=== PATIENT | male | born 1955 | race Caucasian/White ===

== ENCOUNTER 2016-08-27 09:44 | Emergency (ER) | payer SELFPAY ==
[~2016-08-27] VITALS: Ht 180.3 cm; Wt 125.0 kg
[~2016-08-27 09:44] MED LIST: LACT PO; LISI-360 PO; LORTA5 PO; MEDR4PAK3 PO; PROT40TA PO
[2016-08-27 09:47] VITALS: BP 195/123; PULSE 90; RESP 24; TEMP 98; O2SAT 98
[2016-08-27] MEDS ORDERED: SODIUM CHLOR 0.9% 1000 ML INJ 1,000 ML IV SCH (11:30)
[2016-08-27] MEDS ORDERED: SODIUM CHLORIDE 0.9% FLUSH 10 ML FLUSH IV FLUSH PRN (11:30)
--- NOTE | 2016-08-27 11:32 | PD ---
HPI Chief Complaint: Edema Time Seen by Provider: 11:32 Travel History International Travel<30 days: No Contact w/Intl Traveler<30days: No Traveled to known affect area: No History of Present Illness HPI 60-year-old male with a history of alcohol abuse, cirrhosis, hypertension presents to the emergency department for evaluation of left-sided neck mass. The patient states he's had left sided neck mass that has been present and growing for the last 2-1/2 years. States that when he was here in the hospital 2 years ago they did a biopsy and he was told that it was noncancerous. States that he was told he would need to have it removed as an outpatient but he does not have any insurance and therefore has never had it removed. He states that he was told that if it ever caused him difficulty swallowing that he should come back to the hospital. Patient states that for the last month he's had more difficulty with swallowing secondary to the mass. States that he is able to keep down food and fluids, states he has to take small bites of food at a time. He denies any difficulty breathing, shortness of breath, chest pain, nausea, vomiting, diarrhea, abdominal pain, fever, chills, cough or cold symptoms. No other complaints. PFSH Past Medical History Autoimmune Disease: No Blood Disorders: No Anxiety: Yes Depression: Yes Heart Rhythm Problems: No Cancer: No Cardiac Catheterization: No Cardiovascular Problems: Yes High Cholesterol: No Congestive Heart Failure: No Diabetes: No Diminished Hearing: No Gastrointestinal Disorders: Yes (PT STATES, "HAD A HOLE IN MY ESOPHAGUS AND MY LIVER SHUT DOWN.") Hypertension: Yes Psychiatric: No Reproductive: No Myocardial Infarction: No Ulcer: Yes Tetanus Vaccination: Unknown ?: Not Past Surgical History Coronary Artery Bypass Graft: No Pacemaker: No Other Surgery: Yes (ENDOSCOPY FOR "HOLE IN MY ESOPHOGUS". (VARICES?)) Family History Family Myocardial Infarction: Yes Social History Alcohol Use: Yes (occ) Tobacco Use: Yes (1/2 PPD) Substance Use: No Allergies-Medications (Allergen,Severity, Reaction): Coded Allergies: No Known Allergies (Verified , 08/27/16) Reported Meds & Prescriptions Reported Meds & Active Scripts Active No Active Prescriptions or Reported Medications Review of Systems Except as stated in HPI: all other systems reviewed are Neg Physical Exam Narrative GENERAL: Well-nourished and well-developed pleasant male patient in no acute distress who is nontoxic appearing. SKIN: Warm and dry. HEAD: Normocephalic and atraumatic. EYES: No injection, drainage, or hyphema noted. PERRLA. EOMI. ENT: No nasal drainage noted. Oropharynx is clear and the TMs are normal with good landmarks. NECK: Supple and the trachea is midline. Large soft mass to left side of neck that extends from the anterior to the posterior aspect on the left side. CARDIOVASCULAR: Regular rate and rhythm. RESPIRATORY: Breath sounds are equal bilaterally with no accessory muscle use, wheezing, rhonchi, or crackles. GASTROINTESTINAL: Abdomen is soft, non-tender, and nondistended. MUSCULOSKELETAL: No obvious deformities, swelling, cyanosis, or ecchymosis is present throughout the upper and lower extremities. Patient has full range of motion without any signs of neurovascular compromise. NEUROLOGICAL: Awake, alert, and oriented. Normal speech and gait. Cranial nerves are grossly intact. Data Data Last Documented VS Vital Signs Date Time Temp Pulse Resp B/P Pulse Ox O2 Delivery O2 Flow Rate FiO2 08/27/16 13:54 80 18 180/91 97 Room Air 08/27/16 09:47 98.0 Orders Complete Blood Count With Diff (08/27/16 11:30) Comprehensive Metabolic Panel (08/27/16 11:30) Prothrombin Time / Inr (Pt) (08/27/16 11:30) Act Partial Throm Time (Ptt) (08/27/16 11:30) Iv Access Insert/Monitor (08/27/16 11:30) Ecg Monitoring (08/27/16 11:30) Oximetry (08/27/16 11:30) Sodium Chlor 0.9% 1000 Ml Inj (Ns 1000 M (08/27/16 11:30) Sodium Chloride 0.9% Flush (Ns Flush) (08/27/16 11:30) Ct Soft Tiss Neck W Iv Cont (08/27/16 11:30) Potassium Chloride Eff (K-Lyte Cl Eff) (08/27/16 12:45) Iohexol 350 Inj (Omnipaque 350 Inj) (08/27/16 14:18) Mandatory Outpatient Referral (08/27/16 15:01) Labs Laboratory Tests Test 08/27/16 11:40 White Blood Count 6.3 TH/MM3 Red Blood Count 5.07 MIL/MM3 Hemoglobin 16.4 GM/DL Hematocrit 47.2 % Mean Corpuscular Volume 93.1 FL Mean Corpuscular Hemoglobin 32.3 PG Mean Corpuscular Hemoglobin 34.7 % Concent Red Cell Distribution Width 15.6 % Platelet Count 150 TH/MM3 Mean Platelet Volume 8.2 FL Neutrophils (%) (Auto) 59.0 % Lymphocytes (%) (Auto) 31.3 % Monocytes (%) (Auto) 7.3 % Eosinophils (%) (Auto) 1.5 % Basophils (%) (Auto) 0.9 % Neutrophils # (Auto) 3.7 TH/MM3 Lymphocytes # (Auto) 2.0 TH/MM3 Monocytes # (Auto) 0.5 TH/MM3 Eosinophils # (Auto) 0.1 TH/MM3 Basophils # (Auto) 0.1 TH/MM3 CBC Comment DIFF FINAL Differential Comment Prothrombin Time 10.7 SEC Prothromb Time International 1.0 RATIO Ratio Activated Partial 25.7 SEC Thromboplast Time Sodium Level 136 MEQ/L Potassium Level 3.3 MEQ/L Chloride Level 94 MEQ/L Carbon Dioxide Level 35.4 MEQ/L Anion Gap 7 MEQ/L Blood Urea Nitrogen 9 MG/DL Creatinine 0.94 MG/DL Estimat Glomerular Filtration 81 ML/MIN Rate Random Glucose 108 MG/DL Calcium Level 9.1 MG/DL Total Bilirubin 0.9 MG/DL Aspartate Amino Transf 33 U/L (AST/SGOT) Alanine Aminotransferase 22 U/L (ALT/SGPT) Alkaline Phosphatase 112 U/L Total Protein 7.6 GM/DL Albumin 4.0 GM/DL [facility] Medical Decision Making Medical Screen Exam Complete: Yes Emergency Medical Condition: Yes Differential Diagnosis Mass versus lipoma versus airway impingement versus esophageal instruction Narrative Course 60-year-old male presents to the emergency department for evaluation of difficulty swallowing secondary to neck mass. Patient is afebrile. He is hypertensive with a blood pressure 137/87, he does not take anything for his hypertension. He does not have a doctor. IV access is obtained, labs were drawn and sent. Patient is placed on telemetry and pulse oximetry monitoring. CT soft tissue of the neck has been ordered and is pending. CBC is unremarkable. CMP shows hypokalemia with potassium of 3.3. Patient's potassium is repleted orally here in the ED. Coags are unremarkable. CT soft tissue of the neck with IV contrast shows large soft tissue mass in the left neck measuring 13 cm. Smaller mas is seen in the right neck infiltrating around the sternocleidomastoid and jugular vein. CT findings do not suggest any esophageal or airway obstruction. Discussed findings with the patient. Will place a mandatory outpatient referral to ENT for the patient to have this surgically removed. Discussed signs and symptoms of when to return to the emergency department. Patient verbalizes understanding and agreement with treatment plan. I discussed the case with my attending physician Dr. Velásquez who is aware of the patients history, physical examination findings, and treatment plan. Diagnosis Primary Impression: Mass of left side of neck Referrals: [facility] Patient Instructions: General Instructions, Soft Tissue Mass (ED) Additional Instructions: Take medications as prescribed with food and a full glass of water. Follow-up with ENT and a PCP. Return to the ED for any acute worsening of symptoms. Med/Other Pt SpecificInfo: Prescription(s) given Scripts Naproxen 500 Mg Msi162 Mg PO BID 14 Days Ref 0 Prov:Minoo Velásquez DO 08/27/16 Disposition: 01 DISCHARGE HOME Condition: Stable Arleth Brennan Aug 27, 2016 11:32
[2016-08-27 11:47] VITALS: O2SAT 98
[2016-08-27 11:50] LABS: AUTOMATED NEUTROPHIL # 3.7 TH/MM3 (1.8-7.7); BASOPHIL # 0.1 TH/MM3 (0-0.2); BASOPHIL % 0.9 % (0.0-2.0); EOSINOPHIL # 0.1 TH/MM3 (0-0.4); EOSINOPHIL % 1.5 % (0.0-4.0); HEMATOCRIT 47.2 % (39.0-51.0); HEMO FLAGS DIFF FINAL; LYMPH % 31.3 % (9.0-44.0); MEAN CELL VOLUME 93.1 FL (80.0-100.0); MEAN CORPUSCULAR HEMOGLOBIN 32.3 PG (27.0-34.0); MEAN CORPUSCULAR HGB CONC 34.7 % (32.0-36.0); MONO % 7.3 % (0.0-8.0); PLATELET COUNT 150 TH/MM3 (150-450); RED BLOOD COUNT 5.07 MIL/MM3 (4.50-5.90); RED CELL DISTRIBUTION WIDTH 15.6 % (11.6-17.2); WHITE BLOOD COUNT 6.3 TH/MM3 (4.0-11.0)
[2016-08-27 11:52] VITALS: BP 177/87; PULSE 79; RESP 17; O2SAT 95
[2016-08-27 12:04] LABS: APTT (PATIENT) 25.7 SEC (24.3-30.1); PROTHROMBIN TIME - PATIENT 10.7 SEC (9.8-11.6)
[2016-08-27 12:22] LABS: ALT (GPT) 22 U/L (12-78)
[2016-08-27 12:24] LABS: ALKALINE PHOSPHATASE 112 U/L (45-117); TOTAL BILIRUBIN ADULT 0.9 MG/DL (0.2-1.0)
[2016-08-27 12:26] LABS: ANION GAP 7 MEQ/L (5-15); AST (GOT) 33 U/L (15-37); BICARBONATE 35.4 MEQ/L (21.0-32.0); BLOOD UREA NITROGEN 9 MG/DL (7-18); CHLORIDE 94 MEQ/L (98-107); GLOMERULAR FILTRATION RATE 81 ML/MIN (>89); SODIUM (NA) 136 MEQ/L (136-145)
[2016-08-27 12:29] LABS: POTASSIUM 3.3 MEQ/L (3.5-5.1)
[2016-08-27] MEDS ORDERED: POTASSIUM CHLORIDE 25 MEQ EFFERVESCENT TAB PO ONE (12:45)
[2016-08-27 13:54] VITALS: BP 180/91; PULSE 80; RESP 18; O2SAT 97
[2016-08-27] MEDS ORDERED: IOHEXOL 350 MG/ML 10 ML VIAL (for RAD DIAG) IV ONE (14:18)
--- NOTE | 2016-08-27 14:43 | RADRPT ---
EXAM DATE/TIME: 08/27/2016 14:01 [facility] COMPARISON: CT SOFT TISSUE NECK W/O CONTRAST, March 21, 2014, 10:16. INDICATIONS : Left neck mass. IV CONTRAST: 100 cc Omnipaque 350 (iohexol) IV RADIATION DOSE: 29.02 CTDIvol (mGy) MEDICAL HISTORY : Hypertension. SURGICAL HISTORY : None. ENCOUNTER: Initial ACUITY: >1 yr PAIN SCALE: 4/10 LOCATION: Left neck TECHNIQUE: Volumetric scanning of the neck was performed. Using automated exposure control and adjustment of th e mA and/or kV according to patient size, radiation dose was kept as low as reasonably achievable to obtain optimal diagnostic quality images. DICOM format image data is available electronically for r eview and comparison. FINDINGS: There is a large soft tissue mass in the left neck measuring 13 cm. Smaller mass is seen in the righ t neck infiltrating around the sternocleidomastoid and jugular vein. These have tissue characteristi cs by CT scan of a large lipoma. There is very little internal structure to suggest sarcomatous dege neration. This mass extends on the left diagonal to the mandible then along the carotid artery space to the griselda rnoclavicular junction. Mass does infiltrate itself along the brachial plexus. Similar process is present on the right although not as well defined. CONCLUSION: Soft tissue mass in the left neck scanned first in 2014 thought to be either lipoma or atypical lipom a. This has increased slightly in size. Fatty infiltration on the right has increased slightly in s ize as well. Sanjeev Archuleta MD FACR on August 27, 2016 at 14:32 Board Certified Radiologist. This report was verified electronically.
[2016-08-27] MEDS ORDERED: NAPR500T PO (15:10)
== END 2016-08-27 15:25 | disposition home or self-care (01) ==
LOC: NEPE 09:44
DX: R22.1 Localized swelling, mass and lump, neck (principal); E87.6 Hypokalemia; I10 Essential (primary) hypertension; F41.9 Anxiety disorder, unspecified; F32.9 Major depressive disorder, single episode, unspecified; F17.200 Nicotine dependence, unspecified, uncomplicated
CPT/HCPCS: 70491; 80053; 85025; 85610; 85730; 96360; 99285; J7030; Q9967

== ENCOUNTER 2016-12-06 08:33 | Emergency (ER) | payer SELFPAY ==
[~2016-12-06] VITALS: Ht 182.9 cm; Wt 115.0 kg
[~2016-12-06 08:33] MED LIST changes: -LACT PO; -LISI-360 PO; -LORTA5 PO; -MEDR4PAK3 PO; +NAPR500T PO; -PROT40TA PO
[2016-12-06] MEDS ORDERED: GADODIAMIDE PF 287 MG/ML 5 ML VIAL (for RAD MRI) IVCONTRAST ONE (08:34)
[2016-12-06 08:37] VITALS: BP 191/101; PULSE 87; RESP 17; TEMP 98.4; O2SAT 97
[2016-12-06] MEDS ORDERED: SULFAMETHOXAZOLE-TRIMETHOPRIM DS 800-160 MG TAB PO ONE (10:15)
--- NOTE | 2016-12-06 10:17 | PD ---
HPI Chief Complaint: Skin Problem Time Seen by Provider: 09:42 Travel History International Travel<30 days: No Contact w/Intl Traveler<30days: No Traveled to known affect area: No History of Present Illness HPI 61-year-old male came to the emergency room with history of large neck mass that has been there for 3 years. Patient says it's progressively increasing in size. Patient was seen 2 years ago in this hospital when a CAT scan was done. Currently he gets some problems swallowing solids of but liquid some is swallowed easily. The patient is a smoker and no weight loss in the past few days. Patient was hypertensive in triage. [facility] Past Medical History Narrative Medical List of his past medical, surgical, social and family history is reviewed from the nursing note. Autoimmune Disease: No Blood Disorders: No Anxiety: Yes Depression: Yes Heart Rhythm Problems: No Cancer: No Cardiac Catheterization: No Cardiovascular Problems: Yes High Cholesterol: No Congestive Heart Failure: No Diabetes: No Diminished Hearing: No Gastrointestinal Disorders: Yes (PT STATES, "HAD A HOLE IN MY ESOPHAGUS AND MY LIVER SHUT DOWN.") Hypertension: Yes Psychiatric: No Reproductive: No Myocardial Infarction: No Ulcer: Yes Influenza Vaccination: No Past Surgical History Coronary Artery Bypass Graft: No Pacemaker: No Other Surgery: Yes (ENDOSCOPY FOR "HOLE IN MY ESOPHOGUS". (VARICES?)) Family History Family Myocardial Infarction: Yes Social History Alcohol Use: Yes (OCCASIONALLY) Tobacco Use: Yes (1 PPD) Substance Use: No Allergies-Medications (Allergen,Severity, Reaction): Coded Allergies: No Known Allergies (Verified , 08/27/16) Comments List of his allergies reviewed from the nursing note. Reported Meds & Prescriptions Reported Meds & Active Scripts Active Amlodipine (Amlodipine Besylate) 5 Mg Tab 5 Mg PO DAILY Bacitracin Topical 500 Unit/Gm Oint 1 Applic TOPICAL BID Bactrim DS (Sulfamethoxazole-Trimethoprim) 800-160 Mg Tab 1 Tab PO BID Naproxen 500 Mg Tab 500 Mg PO BID 14 Days Narrative Medication List of his home medication reviewed from the nursing note. Review of Systems Except as stated in HPI: all other systems reviewed are Neg Physical Exam Narrative GENERAL: Awake, alert, obese, no obvious distress SKIN: Focused skin assessment warm/dry. Right forearm 2 lesions on the ulnar aspect. The larger one is 5 cm x 3 cm, crusty, some serous sanguinous discharge , erythematous base, the smaller one is 2 x 2 centimeter which has a scab in the center and some erythema surrounding. No discharge, nontender HEAD: Atraumatic. Normocephalic. EYES: Pupils equal and round. No scleral icterus. No injection or drainage. ENT: No nasal bleeding or discharge. Mucous membranes pink and moist. NECK: Trachea midline. No JVD. 20 x 20 cm soft neck mass extending from the mid cervical area anteriorly to the posterior and inferior auricular area superiorly and to the base of the neck laterally and posteriorly. It soft in consistency. No erythema of the overlying skin. The mass is nonpulsatile with no thrill. It is nontender and mobile. CARDIOVASCULAR: Regular rate and rhythm. No murmur appreciated. RESPIRATORY: No accessory muscle use. Clear to auscultation. Breath sounds equal bilaterally. No stridor GASTROINTESTINAL: Abdomen soft, non-tender, nondistended. Hepatic and splenic margins not palpable. MUSCULOSKELETAL: No obvious deformities. No clubbing. No cyanosis. No edema. NEUROLOGICAL: Awake and alert. No obvious cranial nerve deficits. Motor grossly within normal limits. Normal speech. PSYCHIATRIC: Appropriate mood and affect; insight and judgment normal. Data Data Last Documented VS Vital Signs Date Time Temp Pulse Resp B/P (MAP) Pulse Ox O2 Delivery O2 Flow Rate FiO2 12/06/16 14:00 75 20 174/88 (116) 96 12/06/16 08:37 98.4 Orders Orders Basic Metabolic Panel (Bmp) (12/06/16 10:01) Complete Blood Count With Diff (12/06/16 10:01) Wound Culture And Gram Stain (12/06/16 10:01) Sulfamet-Trimeth Ds 800-160 Mg (Bactrim (12/06/16 10:15) Mri Soft Tissue Neck W&W/O Con (12/06/16 ) Gadodiamide Pf Inj (Omniscan Pf Inj) (12/06/16 08:34) Mandatory Outpatient Referral (12/06/16 12:47) Labs Laboratory Tests Test 12/06/16 10:12 White Blood Count 7.0 TH/MM3 Red Blood Count 4.94 MIL/MM3 Hemoglobin 16.0 GM/DL Hematocrit 46.7 % Mean Corpuscular Volume 94.7 FL Mean Corpuscular Hemoglobin 32.5 PG Mean Corpuscular Hemoglobin Concent 34.3 % Red Cell Distribution Width 14.7 % Platelet Count 204 TH/MM3 Mean Platelet Volume 8.1 FL Neutrophils (%) (Auto) 66.3 % Lymphocytes (%) (Auto) 23.0 % Monocytes (%) (Auto) 8.6 % Eosinophils (%) (Auto) 1.5 % Basophils (%) (Auto) 0.6 % Neutrophils # (Auto) 4.6 TH/MM3 Lymphocytes # (Auto) 1.6 TH/MM3 Monocytes # (Auto) 0.6 TH/MM3 Eosinophils # (Auto) 0.1 TH/MM3 Basophils # (Auto) 0.0 TH/MM3 CBC Comment DIFF FINAL Differential Comment Blood Urea Nitrogen 6 MG/DL Creatinine 0.78 MG/DL Random Glucose 107 MG/DL Calcium Level 8.8 MG/DL Sodium Level 139 MEQ/L Potassium Level 3.9 MEQ/L Chloride Level 102 MEQ/L Carbon Dioxide Level 32.3 MEQ/L Anion Gap 5 MEQ/L Estimat Glomerular Filtration Rate 101 ML/MIN MDM Medical Decision Making Medical Screen Exam Complete: Yes Emergency Medical Condition: Yes Medical Record Reviewed: Yes Differential Diagnosis Lipoma, adenocarcinoma Narrative Course 1:04 PM blood test results of back and within normal limit. The MRI report just came back which shows a large lipoma. Patient was given by mouth Bactrim and a wound culture from the skin lesions are pending. Patient will be discharged home on Bactrim. Ordered a mandatory outpatient consult with ENT Dr. Phillips who is on-call for us today. I explained all this to the patient. Procedures EKG Prior to Arrival: No Diagnosis Primary Impression: Lipoma of neck Additional Impressions: Impetigo Hypertension Qualified Codes: I10 - Essential (primary) hypertension Referrals: Alejandro Phillips MD 1 week Additional Instructions: Please return to the ER if the condition worsens or any other new concerns. Follow-up with the ENT surgeon who is name and number been given to you. Take the antibiotic as per the prescription direction. Apply the ointment as per the direction. Med/Other Pt SpecificInfo: Prescription(s) given Scripts Amlodipine (Amlodipine) 5 Mg Tab 5 MG PO DAILY for Blood Pressure Management, #30 TAB 0 Refills Prov: Montserrat Garcia MD 12/06/16 Bacitracin Topical (Bacitracin Topical) 500 Unit/Gm Oint 1 APPLIC TOPICAL BID for Infection, #30 GM 0 Refills Prov: Montserrat Garcia MD 12/06/16 Sulfamethoxazole-Trimethoprim (Bactrim DS) 800-160 Mg Tab 1 TAB PO BID for Infection, #20 TAB 0 Refills Prov: Montserrat Garcia MD 12/06/16 Disposition: 01 DISCHARGE HOME Condition: Stable Montserrat Garcia MD Dec 06, 2016 10:17
[2016-12-06 10:46] LABS: AUTOMATED NEUTROPHIL # 4.6 TH/MM3 (1.8-7.7); BASOPHIL % 0.6 % (0.0-2.0); EOSINOPHIL # 0.1 TH/MM3 (0-0.4); EOSINOPHIL % 1.5 % (0.0-4.0); HEMATOCRIT 46.7 % (39.0-51.0); HEMO FLAGS DIFF FINAL; LYMPHOCYTE # 1.6 TH/MM3 (1.0-4.8); MEAN CELL VOLUME 94.7 FL (80.0-100.0); MEAN CORPUSCULAR HEMOGLOBIN 32.5 PG (27.0-34.0); MEAN CORPUSCULAR HGB CONC 34.3 % (32.0-36.0); MONO % 8.6 % (0.0-8.0); NEUT % 66.3 % (16.0-70.0); PLATELET COUNT 204 TH/MM3 (150-450); RED BLOOD COUNT 4.94 MIL/MM3 (4.50-5.90); RED CELL DISTRIBUTION WIDTH 14.7 % (11.6-17.2)
[2016-12-06 10:57] LABS: BICARBONATE 32.3 MEQ/L (21.0-32.0); POTASSIUM 3.9 MEQ/L (3.5-5.1)
--- NOTE | 2016-12-06 12:37 | RADRPT ---
EXAM DATE/TIME: 12/06/2016 11:38 [facility] COMPARISON: CT SOFT TISSUE NECK W/O CONTRAST, March 21, 2014, 10:16. CT SOFT TISSUE NECK W CONTRAST, August 27, 2016, 14:01. INDICATIONS : Mass on left side of neck. CONTRAST: 23 cc Omniscan (gadodiamide) IV MEDICAL HISTORY : Hypertension. SURGICAL HISTORY : None. ENCOUNTER: Subsequent ACUITY: > 1 year PAIN SCORE: 0/10 LOCATION: Left Neck. TECHNIQUE: Multisequence, multiplanar MRI examination was performed. FINDINGS: A lipomatous mass is noted in the lateral left neck deep to the sternocleidomastoid muscle. The mass extends from the level of the angle of the mandible inferiorly to the supraclavicular region. The mas s measures 10.7 x 16.4 x 12.3 cm (sagittal x AP x transverse). Mass is fairly simple in appearance an d quite well circumscribed. The surrounding soft tissues show unremarkable benign signal characterist ics. There is no evidence of lymphadenopathy in the neck. Small normal size lymph nodes are noted. Th e neck is otherwise unremarkable CONCLUSION: Circumscribed simple appearing lipomatous mass in the left neck. Corona Lomeli MD on December 06, 2016 at 12:29 Board Certified Radiologist. This report was verified electronically.
[2016-12-06] MEDS ORDERED: BACI500O9 TOPICAL (12:56)
[2016-12-06] MEDS ORDERED: BACT800T5 PO (12:56)
[2016-12-06 13:40] VITALS: BP 174/88; PULSE 75; RESP 20; O2SAT 96
[2016-12-06] MEDS ORDERED: AMLO5TAB2 PO (13:55)
[2016-12-06 14:00] VITALS: BP 174/88
== END 2016-12-06 14:38 | disposition home or self-care (01) ==
LOC: NEPC 08:33
DX: D17.0 Benign lipomatous neoplasm of skin and subcutaneous tissue of head, face and neck (principal); L01.00 Impetigo, unspecified; B95.62 Methicillin resistant Staphylococcus aureus infection as the cause of diseases classified elsewhere; B95.0 Streptococcus, group A, as the cause of diseases classified elsewhere; I10 Essential (primary) hypertension; F17.210 Nicotine dependence, cigarettes, uncomplicated
CPT/HCPCS: 70543; 80048; 85025; 86403; 87070; 87186; 99285; A9579

== ENCOUNTER 2017-10-08 11:20 | Inpatient (IN) ==
[2017-10-08] MEDS ORDERED: Piperacil/Tazo 4.5 GM Premix 4.5 GM/100 ML BAG IV.SIG STA (17:36)
[2017-10-08] MEDS ORDERED: Vancomycin Inj 1,000 MG in Sodium Chlor 0.9% Inj 250 ML IV.SIG STA (17:36)
[2017-10-08 18:12] LABS: Baso % (Auto) 0.7 % (0.0-2.0); Eos # (Auto) 0.1 th/mm3 (0.0-0.4); Eos % (Auto) 2.1 % (0.0-4.0); Hematocrit 45.3 % (39.0-51.0); Hemoglobin 15.4 gm/dL (13.0-17.0); Lymph # (Auto) 1.2 th/mm3 (1.0-4.8); Lymph % (Auto) 24.6 % (9.0-44.0); Mean Corpuscular HGB Conc 33.9 % (32.0-36.0); Mean Corpuscular Hemoglobin 29.7 pg (27.0-34.0); Mean Corpuscular Volume 87.7 fL (80.0-100.0); Mean Platelet Volume 7.6 fL (7.0-11.0); Mono # (Auto) 0.5 th/mm3 (0.0-0.9); Mono % (Auto) 10.3 % (0.0-8.0); Neut # (Auto) 2.9 th/mm3 (1.8-7.7); Neut % (Auto) 62.3 % (16.0-70.0); Platelet Count 166 th/mm3 (150-450); Red Blood Count 5.17 mil/mm3 (4.50-5.90); Red Cell Distribution Width 16.2 % (11.6-17.2); White Blood Count 4.7 th/mm3 (4.0-11.0)
--- NOTE | 2017-10-08 18:13 | ED ---
HPI General Chief complaint: Extremity Injury, Lower Stated complaint: leg pain Time Seen by Provider: 10/08/17 17:22 History of Present Illness HPI narrative: Patient comes to the emergency department complaining of possible cellulitis of bilateral lower extremities. States about 4 or 5 days ago they started swelling and becoming red. About 2 days ago they started having pustules that will occasionally drain. Patient denies any fevers with this. Patient reports burning sensation around his legs without radiation. Touching makes the pain worse. Patient reports using Neosporin with no improvement then tried leftover Bactroban and seemed to help some. Denies any chest pain or shortness of breath, numbness or tingling anywhere, or weakness. Related Data Previous Rx's Medication Instructions Recorded ciprofloxacin HCl [Cipro] 500 mg PO BID #20 tab 10/10/17 lisinopril 20 mg PO BID #60 tab 10/10/17 sulfamethoxazole-trimethoprim 1 tab PO Q12H #20 tab 10/10/17 [Bactrim DS] hydrochlorothiazide 25 mg PO DAILY #30 tab 10/11/17 Allergies Allergy/AdvReac Type Severity Reaction Status Date / Time No Known Allergies Allergy Verified 10/08/17 17:56 Review of Systems ROS: all other systems reviewed are negative [facility] Medical History Medical History Hypertension (Acute) Tumor cells, benign (Acute) Family History Family History Other CAD (coronary artery disease) Social History Social History Substance History: No History of Abuse Second Hand Smoke Exposure: No Smoking Status: Current every day smoker Tobacco Type: Cigarettes How Often Do You Have a Drink Containing Alcohol: 2 to 3 times a week Recent Travel in [facility] within the Last 8 Weeks: No Recent Out of Country Travel within the Last 8 Weeks: No Exam Narrative Exam Narrative: GENERAL: Well-developed, overly nourished, in no acute distress , and non-ill appearing. SKIN: Erythematous bilateral lower extremities with small pustules. There is some weeping noted. It is febrile and indurated to palpation without crepitus. Patient has some cracks in his foot but no other open wounds noted. HEAD: Atraumatic. Normocephalic. EYES: Pupils equal and round. EOMI. No scleral icterus. No injection or drainage. ENT: No nasal bleeding or discharge. Mucous membranes pink and moist. NECK: Trachea midline. Supple. No nuclear rigidity. Large fluctuant mass noted left sided neck patient reports has been there for years. It is nontender , afebrile, nonerythematous, and without induration or crepitus. CARDIOVASCULAR: Regular rate and rhythm. No murmur appreciated. RESPIRATORY: No accessory muscle use. No respiratory distress. Decreased breath sounds throughout. MUSCULOSKELETAL: No obvious deformities. No clubbing. No cyanosis. 2+ edema bilateral lower extremities. Full range of motion. NEUROLOGICAL: Awake and alert. No obvious cranial nerve deficits. Motor grossly within normal limits. Normal speech. PSYCHIATRIC: Appropriate mood and affect; insight and judgment normal. Course Initial Documented Vital Signs Temperature 98.6 F 10/08/17 11:23 Pulse Rate 94 H 10/08/17 11:23 Respiratory Rate 18 10/08/17 11:23 Blood Pressure 165/79 H 10/08/17 11:23 Pulse Oximetry 94 L 10/08/17 11:23 Last Documented Vital Signs Temperature 97.2 F L 10/11/17 08:00 Pulse Rate 72 10/11/17 08:00 Respiratory Rate 17 10/11/17 08:00 Blood Pressure 170/90 H 10/11/17 08:00 Pulse Oximetry 91 L 10/11/17 08:00 Sign Out Sign Out Data: Patient Sign Out occurred on 10/08/17 at 19:22. Patient's care was discussed, and care was transferred from HAILEY Klein to Horace Ingram MD. Sign Out Comment: Patient signed out to Dr. Ingram at the end of my shift pending labs. Please see his documentation for final diagnosis and disposition. Last updated by Leonard Rouse PA at 10/08/17 18:57 Medical Decision Making MDM Narrative Medical decision making narrative: Patient CARE assume from Singh Rouse PA-C at 1900 the end of the shift, patient has impressive circumferential cellulitis of bilateral lower legs from the knee caps distally which I believe he is beyond outpatient therapy and will require admission to the hospital. No sepsis criteria. Discussed with Dr. Smith for admission he was started on vancomycin and Zosyn. Incidental finding of large left-sided goiter which the patient states that he has been worked up for this in the past and had biopsies. Lab Data Result diagrams: 10/09/17 14:11 10/09/17 05:17 Lab Results 10/08/17 10/08/17 10/08/17 Range/Units 17:40 17:40 17:40 WBC 4.7 (4.0-11.0) th/mm3 RBC 5.17 (4.50-5.90) mil/mm3 Hgb 15.4 (13.0-17.0) gm/dL Hct 45.3 (39.0-51.0) % MCV 87.7 (80.0-100.0) fL MCH 29.7 (27.0-34.0) pg MCHC 33.9 (32.0-36.0) % RDW 16.2 (11.6-17.2) % Plt Count 166 (150-450) th/mm3 MPV 7.6 (7.0-11.0) fL Neut % (Auto) 62.3 (16.0-70.0) % Lymph % (Auto) 24.6 (9.0-44.0) % Mills % (Auto) 10.3 H (0.0-8.0) % Eos % (Auto) 2.1 (0.0-4.0) % Baso % (Auto) 0.7 (0.0-2.0) % Neut # (Auto) 2.9 (1.8-7.7) th/mm3 Lymph # (Auto) 1.2 (1.0-4.8) th/mm3 Mills # (Auto) 0.5 (0.0-0.9) th/mm3 Eos # (Auto) 0.1 (0.0-0.4) th/mm3 Baso # (Auto) 0.0 (0.0-0.2) th/mm3 WBC Differential . Differential Comment Auto diff final Sodium 138 (136-145) meq/L Potassium 4.3 (3.5-5.1) meq/L Chloride 99 (98-107) meq/L Carbon Dioxide 32.7 H (21.0-32.0) meq/L Anion Gap 6 (5-15) meq/L BUN 8 (7-18) mg/dL Creatinine 0.73 (0.60-1.30) mg/dL Estimated GFR Greater than 89 (>89) mL/min Random Glucose 87 (74-106) mg/dL Lactic Acid (0.4-2.0) mmol/L Calcium 8.7 (8.5-10.1) mg/dL Total Bilirubin 0.9 (0.2-1.0) mg/dL AST 19 (15-37) U/L ALT 19 (12-78) U/L Alkaline Phosphatase 117 (45-117) U/L B-Natriuretic Peptide 65 (0-100) pg/mL Total Protein 7.6 (6.4-8.2) g/dL Albumin 3.4 (3.4-5.0) g/dL Vancomycin Trough (5.0-10.0) mcg/mL 10/08/17 10/09/17 10/09/17 Range/Units 20:03 05:17 14:11 WBC 4.0 (4.0-11.0) th/mm3 RBC 4.78 (4.50-5.90) mil/mm3 Hgb 14.2 (13.0-17.0) gm/dL Hct 42.0 (39.0-51.0) % MCV 87.9 (80.0-100.0) fL MCH 29.8 (27.0-34.0) pg MCHC 33.9 (32.0-36.0) % RDW 16.3 (11.6-17.2) % Plt Count 149 L (150-450) th/mm3 MPV 7.3 (7.0-11.0) fL Neut % (Auto) 71.0 H (16.0-70.0) % Lymph % (Auto) 16.2 (9.0-44.0) % Mills % (Auto) 10.2 H (0.0-8.0) % Eos % (Auto) 2.1 (0.0-4.0) % Baso % (Auto) 0.5 (0.0-2.0) % Neut # (Auto) 2.9 (1.8-7.7) th/mm3 Lymph # (Auto) 0.6 L (1.0-4.8) th/mm3 Mills # (Auto) 0.4 (0.0-0.9) th/mm3 Eos # (Auto) 0.1 (0.0-0.4) th/mm3 Baso # (Auto) 0.0 (0.0-0.2) th/mm3 WBC Differential . Differential Comment Auto diff final Sodium 139 (136-145) meq/L Potassium 4.9 (3.5-5.1) meq/L Chloride 104 (98-107) meq/L Carbon Dioxide 28.9 (21.0-32.0) meq/L Anion Gap 6 (5-15) meq/L BUN 8 (7-18) mg/dL Creatinine 0.79 (0.60-1.30) mg/dL Estimated GFR Greater than 89 (>89) mL/min Random Glucose 91 (74-106) mg/dL Lactic Acid 1.3 (0.4-2.0) mmol/L Calcium 8.4 L (8.5-10.1) mg/dL Total Bilirubin (0.2-1.0) mg/dL AST (15-37) U/L ALT (12-78) U/L Alkaline Phosphatase (45-117) U/L B-Natriuretic Peptide (0-100) pg/mL Total Protein (6.4-8.2) g/dL Albumin (3.4-5.0) g/dL Vancomycin Trough (5.0-10.0) mcg/mL 10/09/17 Range/Units 19:00 WBC (4.0-11.0) th/mm3 RBC (4.50-5.90) mil/mm3 Hgb (13.0-17.0) gm/dL Hct (39.0-51.0) % MCV (80.0-100.0) fL MCH (27.0-34.0) pg MCHC (32.0-36.0) % RDW (11.6-17.2) % Plt Count (150-450) th/mm3 MPV (7.0-11.0) fL Neut % (Auto) (16.0-70.0) % Lymph % (Auto) (9.0-44.0) % Mills % (Auto) (0.0-8.0) % Eos % (Auto) (0.0-4.0) % Baso % (Auto) (0.0-2.0) % Neut # (Auto) (1.8-7.7) th/mm3 Lymph # (Auto) (1.0-4.8) th/mm3 Mills # (Auto) (0.0-0.9) th/mm3 Eos # (Auto) (0.0-0.4) th/mm3 Baso # (Auto) (0.0-0.2) th/mm3 WBC Differential Differential Comment Sodium (136-145) meq/L Potassium (3.5-5.1) meq/L Chloride (98-107) meq/L Carbon Dioxide (21.0-32.0) meq/L Anion Gap (5-15) meq/L BUN (7-18) mg/dL Creatinine (0.60-1.30) mg/dL Estimated GFR (>89) mL/min Random Glucose (74-106) mg/dL Lactic Acid (0.4-2.0) mmol/L Calcium (8.5-10.1) mg/dL Total Bilirubin (0.2-1.0) mg/dL AST (15-37) U/L ALT (12-78) U/L Alkaline Phosphatase (45-117) U/L B-Natriuretic Peptide (0-100) pg/mL Total Protein (6.4-8.2) g/dL Albumin (3.4-5.0) g/dL Vancomycin Trough 10.8 H (5.0-10.0) mcg/mL Imaging Data Radiologist's impression: Chest X-Ray 10/08/17 17:36 CONCLUSION: No evidence of acute cardiopulmonary disease. Venous Doppler Study 10/09/17 00:00 CONCLUSION: 1. Negative study with no evidence of deep venous thrombosis. 2. Prominent right groin lymph node. Discharge Plan Discharge Disposition Patient Disposition: 01 Discharge Home Discharge Condition Condition: Stable Discharge Order Discharge Orders: Discharge Order (Routine); Ordered 10/11/17 Ordered By: Gregorio Plata Physicians Team ED Provider: Horcae Ingram Primary Care Provider: Primary Care Adelaida De Attending Provider: Gregorio Plata Status ED Status: Left Department Discharge Information Discharge Date/Time: 10/11/17 11:30
--- NOTE | 2017-10-08 18:18 | XR ---
EXAM DATE: 10/08/2017 6:14 PM EDT AGE/SEX: 61 years / Male INDICATIONS: Cough. CLINICAL DATA: This is the patient's initial encounter. Patient reports that signs and symptoms have been present for 2 days and indicates a pain score of 0/10. MEDICAL/SURGICAL HISTORY: None. None. COMPARISON: No prior exams available for comparison. FINDINGS: A single AP view of the chest demonstrates the lungs to be symmetrically aerated without evidence of mass, infiltrate or effusion. The cardiomediastinal contours are unremarkable. Osseous structures a re intact. CONCLUSION: No evidence of acute cardiopulmonary disease. Electronically signed by: Corona Robison MD 10/08/2017 6:17 PM EDT
[2017-10-08 18:31] LABS: Albumin 3.4 g/dL (3.4-5.0); Anion Gap 6 meq/L (5-15); Aspartate Aminotransferase 19 U/L (15-37); Blood Urea Nitrogen 8 mg/dL (7-18); Calcium 8.7 mg/dL (8.5-10.1); Carbon Dioxide 32.7 meq/L (21.0-32.0); Chloride 99 meq/L (98-107); Glomerular Filtration Rate Greater Than 89 mL/min (>89); Glucose,Random 87 mg/dL (74-106); Potassium 4.3 meq/L (3.5-5.1); Sodium 138 meq/L (136-145)
[2017-10-08 18:32] LABS: Alanine Aminotransferase 19 U/L (12-78)
[2017-10-08 18:34] LABS: Alkaline Phosphatase 117 U/L (45-117); Total Protein 7.6 g/dL (6.4-8.2)
[2017-10-08] MEDS ORDERED: Acetaminophen 325 MG Tablet PO ONE (18:56)
[2017-10-08] MEDS ORDERED: Piperacil/Tazo 3.375 GM Premix 50 ML IV.SIG SCH (21:26)
[2017-10-08] MEDS ORDERED: Temazepam 15 MG Capsule PO PRN (21:29)
[2017-10-08] MEDS ORDERED: Bisacodyl 10 MG Supp RECTAL PRN (21:30)
[2017-10-08] MEDS ORDERED: Acetaminophen 325 MG Tablet PO PRN (21:30)
--- NOTE | 2017-10-08 21:46 | P.HP ---
History of Present Illness Service: [facility] Primary Care Physician: No Primary Care Physician History of Present Illness: 61-year-old male with a past medical history significant for hypertension presents to the emergency department for the evaluation of bilateral lower extremity cellulitis. The patient reports that approximately 5-6 days ago he started having redness on his bilateral lower extremities. He reports that he then had several sores open up on his legs. He states this is making it difficult to ambulate secondary to pain. He has open areas that are draining serosanguineous fluid. He denies any fever/chills. Review of Systems Denies fever or chills Denies blurry vision, otorrhea, rhinorrhea Denies sore throat and cough No chest pain, palpitations No shortness of breath or wheezing No abdominal pain Denies constipation/diarrhea/nausea/vomiting Denies muscle pain Denies focal weakness PMFSH - History History Provided By: Patient - Medical / Surgical Hx Neg / Unobtainable Surgical History: No Previous Surgery - Medical History Medical History: Medical History (Last Reviewed 10/08/17 @ 18:09 by HAILEY Klein) Hypertension Tumor cells, benign - Family History Family History: Family History (Last Updated 10/08/17 @ 21:39 by Minoo Smith MD) Other CAD (coronary artery disease) - Tobacco History Second Hand Smoke Exposure: Yes Tobacco Use In Past 30 Days: Yes Smoking Status: Heavy tobacco smoker Tobacco Type: Cigarettes - Alcohol History How Often Do You Have a Drink Containing Alcohol: 4 or more times a week - Substance Use History Substance History: No History of Abuse - Travel History Recent Travel in the [place] Within the Last 8 Weeks: No Recent Travel Out of the Country Within the Last 8 Weeks: No - Immunization History Tetanus Immunization: >5 Years Hx Influenza Vaccine This Season: No Medications and Allergies Active Medications: Active Medications Acetaminophen (Tylenol) 650 mg PO Q4H PRN PRN Reason: Temp > 100.4 Al Hydroxide/Mg Hydroxide (Milk Of Magnesia Liq) 30 ml PO Q12H PRN PRN Reason: Mild Constipation Bisacodyl (Dulcolax Supp) 10 mg RECTAL DAILY PRN PRN Reason: SEVERE CONSITIPATION Enoxaparin Sodium (Lovenox Inj) 40 mg SQ Q24H [facility] Pharmacy Profile Note (Vancomycin Consult Pharmacy) 0 mls @ 0 mls/hr OTHER UNSCH [facility] Piperacillin/Tazobactam/Dextrose (Zosyn 3.375 Gm Premix) 50 mls @ 100 mls/hr IV.SIG Q6H [facility] Sodium Chloride (Ns Inj) 1,000 mls @ 100 mls/hr IV.CONT .Q10H [facility] Lactulose (Lactulose Liq) 30 ml PO DAILY PRN PRN Reason: SEVERE CONSITIPATION Ondansetron HCl (Zofran Inj) 4 mg IV.PUSH Q6H PRN PRN Reason: NAUSEA OR VOMITING Oxycodone/Acetaminophen (Percocet 5/325 Mg) 1 tab PO Q4H PRN PRN Reason: pain > 4 Sennosides (Senokot) 17.2 mg PO Q12H PRN PRN Reason: Moderate Constipation Temazepam (Restoril) 15 mg PO HS PRN PRN Reason: INSOMNIA Allergies Allergy/AdvReac Type Severity Reaction Status Date / Time No Known Allergies Allergy Verified 10/08/17 17:56 Home Medications Medication Instructions Recorded Confirmed Type No Known Home Medications 10/08/17 10/08/17 History Exam Vital signs: Vital Signs 10/08/17 11:23 10/08/17 17:57 10/08/17 19:22 Temperature 98.6 F Pulse Rate 94 H 73 68 Respiratory Rate 18 20 Blood Pressure 165/79 H 177/84 H Pulse Oximetry 94 L 95 95 Intake & Output 10/08/17 10/08/17 10/09/17 06:59 18:59 06:59 Intake Total 100 / 100 Balance 100 / 100 Weight 122.47 kg Intake: IV 100 / 100 Zosyn 4.5 GM Premix 4.5 gm In 100 / 100 100 ml @ 200 mls/hr IV.SIG STAT STA Rx#:[id number] Narrative: Gen.: No acute distress Head: Normocephalic. Atraumatic. EENT: Pupils equal round and reactive to light. Nose without drainage. Airway intact. Throat without injection. Cardiovascular: Regular rate and rhythm. No murmurs, rubs or gallops. Respiratory: Lungs clear to auscultation bilaterally. No wheezes or rhonchi. Abdomen: Soft, nontender, nondistended. No peritoneal signs. Musculoskeletal: No gross deformities. No edema. Skin: Bilateral lower extremity erythema and edema with broken areas of skin with serosanguineous drainage. Multiple small lesions present on the bilateral lower extremities. Erythema and edema is circumferential from the knee to the foot. Neuro: Sensory and motor grossly intact. Cranial nerves II through XII grossly intact. Psych: Appropriate mood and affect Results - Labs CBC & Chem 7: 10/08/17 17:40 10/08/17 17:40 Labs: Laboratory Results - last 24 hr 10/08/17 10/08/17 10/08/17 17:40 17:40 20:03 WBC 4.7 RBC 5.17 Hgb 15.4 Hct 45.3 MCV 87.7 MCH 29.7 MCHC 33.9 RDW 16.2 Plt Count 166 MPV 7.6 Neut % (Auto) 62.3 Lymph % (Auto) 24.6 Anderson % (Auto) 10.3 H Eos % (Auto) 2.1 Baso % (Auto) 0.7 Neut # (Auto) 2.9 Lymph # (Auto) 1.2 Anderson # (Auto) 0.5 Eos # (Auto) 0.1 Baso # (Auto) 0.0 WBC Differential . Differential Comment Auto diff final Sodium 138 Potassium 4.3 Chloride 99 Carbon Dioxide 32.7 H Anion Gap 6 BUN 8 Creatinine 0.73 Estimated GFR Greater than 89 Random Glucose 87 Lactic Acid 1.3 Calcium 8.7 Total Bilirubin 0.9 AST 19 ALT 19 Alkaline Phosphatase 117 Total Protein 7.6 Albumin 3.4 - Imaging Impressions Chest X-Ray 10/08/17 17:36 CONCLUSION: No evidence of acute cardiopulmonary disease. Caprini VTE Risk Assessment Caprini VTE Risk Assessment: Moderate/High Risk (score >= 2) Caprini Risk Assessment Model: Point Value = 1 Point Value = 2 Point Value = 3 Point Value = 5 Age 41-60 Minor surgery BMI > 25 kg/m2 Swollen legs Varicose veins or History of unexplained or recurrent spontaneous Oral contraceptives or hormone replacement Sepsis (< 1 month) Serious lung disease, including pneumonia (< 1 month) Abnormal pulmonary function Acute myocardial infarction Congestive heart failure (< 1 month) History of inflammatory bowel disease Medical patient at bed rest Age 61-74 Arthroscopic surgery Major open surgery (> 45 min) Laparoscopic surgery (> 45 min) Malignancy Confined to bed (> 72 hours) Immobilizing plaster cast Central venous access Age >= 75 History of VTE Family history of VTE Factor V Leiden Prothrombin [id number] Lupus anticoagulant Anticardiolipin antibodies Elevated serum homocysteine Heparin-induced thrombocytopenia Other congenital or acquired thrombophilia Stroke (< 1 month) Elective arthroplasty Hip, pelvis, or leg fracture Acute spinal cord injury (< 1 month) Prophylaxis Regimen: Total Risk Factor Score Risk Level Prophylaxis Regimen 0-1 Low Early ambulation 2 Moderate Order ONE of the following: *Sequential Compression Device (SCD) *Heparin 5000 units SQ BID 3-4 Higher Order ONE of the following medications: *Heparin 5000 units SQ TID *Enoxaparin/Lovenox 40 mg SQ daily (WT < 150 kg, CrCl > 30 mL/min) *Enoxaparin/Lovenox 30 mg SQ daily (WT < 150 kg, CrCl > 10-29 mL/min) *Enoxaparin/Lovenox 30 mg SQ BID (WT < 150 kg, CrCl > 30 mL/min) AND/OR *Sequential Compression Device (SCD) 5 or more Highest Order ONE of the following medications: *Heparin 5000 units SQ TID (Preferred with Epidurals) *Enoxaparin/Lovenox 40 mg SQ daily (WT < 150 kg, CrCl > 30 mL/min) *Enoxaparin/Lovenox 30 mg SQ daily (WT < 150 kg, CrCl > 10-29 mL/min) *Enoxaparin/Lovenox 30 mg SQ BID (WT < 150 kg, CrCl > 30 mL/min) AND *Sequential Compression Device (SCD) Assessment and Plan - Plan Assessment/plan: 1. Bilateral lower extremity cellulitis Vancomycin/Zosyn Anticipate transition to p.o. antibiotics in the next 1-2 days pending clinical condition 2. Hypertension Clonidine as needed Patient reports his last prescription was for clonidine. He states he cannot take LOREN inhibitors because they make him "sleepy". FEN Healthy diet Electrolytes: Monitor and replete as needed Lovenox
[2017-10-08] MEDS ORDERED: Vancomycin Consult Pharmacy 1 EACH OTHER SCH (22:00)
[2017-10-08] MEDS: Enoxaparin Inj 40 MG/0.4 ML Syringe SQ SCH (23:12)
[2017-10-08] MEDS: Sod Chloride 0.9% Inj 1,000 ML IV.CONT SCH (23:14)
[2017-10-08] MEDS: Piperacil/Tazo 3.375 GM Premix 50 ML IV.SIG SCH (23:14)
[2017-10-09] MEDS: Vancomycin Inj 1,250 MG in Sodium Chlor 0.9% Inj 250 ML IV.SIG SCH ×3 (02:37→19:09)
[2017-10-09] MEDS: Piperacil/Tazo 3.375 GM Premix 50 ML IV.SIG SCH ×3 (05:43→17:10)
[2017-10-09 06:14] LABS: Anion Gap 6 meq/L (5-15); Blood Urea Nitrogen 8 mg/dL (7-18); Calcium 8.4 mg/dL (8.5-10.1); Carbon Dioxide 28.9 meq/L (21.0-32.0); Chloride 104 meq/L (98-107); Glomerular Filtration Rate Greater Than 89 mL/min (>89); Glucose,Random 91 mg/dL (74-106); Potassium 4.9 meq/L (3.5-5.1)
[2017-10-09 06:20] LABS: Sodium 139 meq/L (136-145)
[2017-10-09] MEDS: Sod Chloride 0.9% Inj 1,000 ML IV.CONT SCH ×2 (10:31→18:43)
--- NOTE | 2017-10-09 12:51 | P.PN ---
Subjective Interval history: Follow-up for bilateral lower extremity cellulitis/edema. Patient reports his leg erythema and edema has improved slightly overnight. Denies fevers/chills. Denies any lightheadedness, chest pain, palpitations, shortness of breath, or abdominal complaints. He does not have a PCP. BP has been persistently elevated. He states he takes clonidine as needed for elevated blood pressures at home, and usually takes a few a day. He states he was on lisinopril in the past and this worked for him. Physical Exam Vital signs: Vital Signs 10/08/17 17:57 10/08/17 19:22 10/08/17 22:15 Temperature 98.5 F Pulse Rate 73 68 67 Respiratory Rate 20 17 Blood Pressure 177/84 H 176/85 H Pulse Oximetry 95 95 91 L 10/09/17 04:00 10/09/17 08:00 10/09/17 09:54 Temperature 98.7 F 98.0 F Pulse Rate 70 65 Respiratory Rate 17 22 Blood Pressure 186/83 H 201/92 H 180/98 H Pulse Oximetry 92 L 90 L Intake & Output 10/08/17 10/09/17 10/09/17 18:59 06:59 18:59 Intake Total 412.5 / 412.5 1300 / 1300 Output Total 1200 / 1200 Balance -787.5 / -787.5 1300 / 1300 Weight 122.47 kg 122.47 kg Intake: IV 412.5 / 412.5 1300 / 1300 NS Inj 1,000 ML @ 100 mls/hr IV 1000 / 1000 .CONT .Q10H [facility] Rx#:[id number] Zosyn 3.375 GM Premix 50 ML @ 50 / 50 50 / 50 100 mls/hr IV.SIG Q6H [facility] Rx#: [id number] Zosyn 4.5 GM Premix 4.5 gm In 100 / 100 100 ml @ 200 mls/hr IV.SIG STAT STA Rx#:[id number] Vancomycin Inj 1,250 MG In NS 262.5 / 262.5 Inj 250 ML @ 250 mls/hr IV.SIG Q8H [facility] Rx#:[id number] Output: Urine 1200 / 1200 Narrative: GENERAL: Well-nourished, well-developed middle aged male patient in [facility]. SKIN: Warm and dry. No rash. HEENT: Normocephalic. Atraumatic. Pupils equal and round. Mucous membranes pink and moist. NECK: Supple. Trachea midline. Very large fluid filled cyst throughout left neck. CARDIOVASCULAR: Regular rate and rhythm. No murmur appreciated. RESPIRATORY: No accessory muscle use. Clear to auscultation. Breath sounds equal bilaterally. GASTROINTESTINAL: Abdomen soft, non-tender, nondistended. Normoactive bowel sounds x4. MUSCULOSKELETAL: Bilateral lower extremities with diffuse erythema/edema, induration, with weeping blisters throughout the feet up to the distal knee. NEUROLOGICAL: Awake and alert. No obvious cranial nerve deficits. Motor grossly within normal limits. Moving all extremities spontaneously. Normal speech. PSYCHIATRIC: Appropriate mood and affect; insight and judgment normal. Results - Labs CBC & Chem 7: 10/09/17 14:11 10/09/17 05:17 Laboratory Results - last 24 hr 10/08/17 10/08/17 10/08/17 17:40 17:40 17:40 WBC 4.7 RBC 5.17 Hgb 15.4 Hct 45.3 MCV 87.7 MCH 29.7 MCHC 33.9 RDW 16.2 Plt Count 166 MPV 7.6 Neut % (Auto) 62.3 Lymph % (Auto) 24.6 Borden % (Auto) 10.3 H Eos % (Auto) 2.1 Baso % (Auto) 0.7 Neut # (Auto) 2.9 Lymph # (Auto) 1.2 B[place] # (Auto) 0.5 Eos # (Auto) 0.1 Baso # (Auto) 0.0 WBC Differential . Differential Comment Auto diff final Sodium 138 Potassium 4.3 Chloride 99 Carbon Dioxide 32.7 H Anion Gap 6 BUN 8 Creatinine 0.73 Estimated GFR Greater than 89 Random Glucose 87 Lactic Acid Calcium 8.7 Total Bilirubin 0.9 AST 19 ALT 19 Alkaline Phosphatase 117 B-Natriuretic Peptide 65 Total Protein 7.6 Albumin 3.4 10/08/17 10/09/17 20:03 05:17 WBC RBC Hgb Hct MCV MCH MCHC RDW Plt Count MPV Neut % (Auto) Lymph % (Auto) Borden % (Auto) Eos % (Auto) Baso % (Auto) Neut # (Auto) Lymph # (Auto) B[place] # (Auto) Eos # (Auto) Baso # (Auto) WBC Differential Differential Comment Sodium 139 Potassium 4.9 Chloride 104 Carbon Dioxide 28.9 Anion Gap 6 BUN 8 Creatinine 0.79 Estimated GFR Greater than 89 Random Glucose 91 Lactic Acid 1.3 Calcium 8.4 L Total Bilirubin AST ALT Alkaline Phosphatase B-Natriuretic Peptide Total Protein Albumin Microbiology 10/08/17 17:40 Blood - Peripheral Aerobic Blood Culture - Preliminary No growth in 1 day 10/08/17 17:40 Blood - Peripheral Anaerobic Blood Culture - Preliminary No growth in 1 day 10/08/17 17:30 Blood - Peripheral Aerobic Blood Culture - Preliminary No growth in 1 day 10/08/17 17:30 Blood - Peripheral Anaerobic Blood Culture - Preliminary No growth in 1 day 10/08/17 17:30 Wound - Leg Gram Stain - Final - Imaging Impressions Chest X-Ray 10/08/17 17:36 CONCLUSION: No evidence of acute cardiopulmonary disease. Assessment and Plan - Plan 61-year-old male with history of hypertension presents with a one-week history of bilateral lower extremity erythema/edema and weeping blisters Bilateral lower extremity cellulitis: Acute. Patient with significant erythema/ edema/induration 1 week. Afebrile, no leukocytosis, lactic acid 1.3. -Continue antibiotics with IV Zosyn and IV vancomycin with pharmacy consult -Elevate lower extremities -Check Doppler ultrasound to rule out DVT -Pain control with percocet prn -Monitor for improvement Accelerated Hypertension: BP up to 201/92. Patient takes clonidine as needed at home, possibly experiencing rebound hypertension. -Patient previously did well on lisinopril, restart patient on lisinopril 20mg daily, consider adding HCTZ if no improvement (avoid norvasc with lower extremity edema) -Continue clonidine prn -Monitor BP, adjust antihypertensives as needed -Needs referral to follow up with a PCP at [facility] upon discharge Large Left Neck Cyst: patient with very large fluid filled mass at left neck, per patient, present x 3 years, nonpainful. -instructed patient to follow up with general surgeon after discharge DVT Prophylaxis: lovenox sq Discharge Planning: Discharge pending further clinical improvement. Likely needs additional 2-3days of IV antibiotics.
[2017-10-09] MEDS ORDERED: Lisinopril 10 MG Tablet PO SCH (13:00)
[2017-10-09 14:25] LABS: Baso % (Auto) 0.5 % (0.0-2.0); Eos # (Auto) 0.1 th/mm3 (0.0-0.4); Eos % (Auto) 2.1 % (0.0-4.0); Hemoglobin 14.2 gm/dL (13.0-17.0); Lymph # (Auto) 0.6 th/mm3 (1.0-4.8); Lymph % (Auto) 16.2 % (9.0-44.0); Mean Corpuscular HGB Conc 33.9 % (32.0-36.0); Mean Corpuscular Hemoglobin 29.8 pg (27.0-34.0); Mean Corpuscular Volume 87.9 fL (80.0-100.0); Mean Platelet Volume 7.3 fL (7.0-11.0); Mono # (Auto) 0.4 th/mm3 (0.0-0.9); Mono % (Auto) 10.2 % (0.0-8.0); Neut # (Auto) 2.9 th/mm3 (1.8-7.7); Platelet Count 149 th/mm3 (150-450); Red Blood Count 4.78 mil/mm3 (4.50-5.90); Red Cell Distribution Width 16.3 % (11.6-17.2)
[2017-10-09] MEDS ORDERED: Lisinopril 10 MG Tablet PO ONE (16:18)
--- NOTE | 2017-10-09 17:35 | US ---
EXAM DATE: 10/09/2017 5:31 PM EDT AGE/SEX: 61 years / Male INDICATIONS: Bilateral leg swelling. CLINICAL DATA: This is the patient's initial encounter. Patient reports that signs and symptoms have been present for 1 week and indicates a pain score of 3/10. MEDICAL/SURGICAL HISTORY: Hypertension. Left neck tumor, benign. None. COMPARISON: No prior exams available for comparison. TECHNIQUE: Venous ultrasound of both lower extremities was performed from the inguinal ligament to t he proximal calf. Real-time, color Doppler and spectral tracing, compression and augmentation techni ques were used. FINDINGS: Right Leg: Normal compression of the deep venous system from the inguinal region to the proximal yasmani f. No echogenic clot is seen. Normal response of the venous system to augmentation and respiration. Left Leg: Normal compression of the deep venous system from the inguinal region to the proximal calf . No echogenic clot is seen. Normal response of the venous system to augmentation and respiration. Other: There is a prominent right groin node measuring up to 4.3 x 1.2 x 2 cm. CONCLUSION: 1. Negative study with no evidence of deep venous thrombosis. 2. Prominent right groin lymph node. Electronically signed by: Misael Awan MD 10/09/2017 5:34 PM EDT
[2017-10-09] MEDS ORDERED: Pharmacy Ordered Lab Info OTHER ONE (17:45)
[2017-10-09] MEDS: Enoxaparin Inj 40 MG/0.4 ML Syringe SQ SCH (21:22)
[2017-10-10] MEDS: Piperacil/Tazo 3.375 GM Premix 50 ML IV.SIG SCH ×5 (00:46→23:44)
[2017-10-10] MEDS: Sod Chloride 0.9% Inj 1,000 ML IV.CONT SCH ×2 (00:49→05:09)
[2017-10-10] MEDS: Vancomycin Inj 1,250 MG in Sodium Chlor 0.9% Inj 250 ML IV.SIG SCH ×3 (01:39→17:44)
[2017-10-10] MEDS: Lisinopril 20 MG Tablet PO SCH ×3 (06:01→20:04)
--- NOTE | 2017-10-10 09:36 | P.PN ---
Subjective Interval history: Follow-up cellulitis and hypertension. Patient states bilateral lower extremity cellulitis is much improved but still having tenderness. BP continues to be uncontrolled. Physical Exam Vital signs: Vital Signs 10/09/17 09:54 10/09/17 12:00 10/09/17 16:00 Temperature 96.6 F L 97.8 F Pulse Rate 64 67 Respiratory Rate 18 16 Blood Pressure 180/98 H 180/84 H 191/91 H Pulse Oximetry 95 82 L 10/09/17 18:50 10/09/17 20:00 10/10/17 00:00 Temperature 98.5 F 98.6 F Pulse Rate 70 70 Respiratory Rate 17 17 Blood Pressure 158/88 H 189/95 H 195/93 H Pulse Oximetry 95 95 10/10/17 04:00 10/10/17 07:28 Temperature 98.8 F 97.7 F Pulse Rate 74 76 Respiratory Rate 18 14 Blood Pressure 209/93 H 178/84 H Pulse Oximetry 95 79 L Intake & Output 10/09/17 10/10/17 10/10/17 18:59 06:59 18:59 Intake Total 1662.5 / 1662.5 1625.0 / 1625.0 640 / 640 Output Total 500 / 500 700 / 700 1325 / 1325 Balance 1162.5 / 1162.5 925.0 / 925.0 -685 / -685 Intake: IV 1662.5 / 1662.5 1625.0 / 1625.0 NS Inj 1,000 ML @ 100 mls/hr IV 1000 / 1000 1000 / 1000 .CONT .Q10H [facility] Rx#:[id number] Zosyn 3.375 GM Premix 50 ML @ 150 / 150 100 / 100 100 mls/hr IV.SIG Q6H [facility] Rx#: [id number] Vancomycin Inj 1,250 MG In NS 262.5 / 262.5 525.0 / 525.0 Inj 250 ML @ 250 mls/hr IV.SIG Q8H [facility] Rx#:[id number] Oral 640 / 640 Output: Urine 500 / 500 700 / 700 1325 / 1325 Other: Date of Last Bowel Movement 10/09/17 Narrative: GENERAL: Well-nourished, well-developed middle aged male patient in [facility]. SKIN: Warm and dry. No rash. NECK: Supple. Trachea midline. Very large fluid filled cyst throughout left neck. CARDIOVASCULAR: Regular rate and rhythm. No murmur appreciated. RESPIRATORY: No accessory muscle use. Clear to auscultation. Breath sounds equal bilaterally. GASTROINTESTINAL: Abdomen soft, non-tender, nondistended. Normoactive bowel sounds x4. MUSCULOSKELETAL: Bilateral lower extremities with improving diffuse erythema/ edema, induration and tenderness. Open wounds on the right lower extremity with no purulent discharge. NEUROLOGICAL: Awake and alert. No obvious cranial nerve deficits. Motor grossly within normal limits. Moving all extremities spontaneously. Normal speech. Results - Labs CBC & Chem 7: 10/09/17 14:11 10/09/17 05:17 Laboratory Results - last 24 hr 10/09/17 10/09/17 14:11 19:00 WBC 4.0 RBC 4.78 Hgb 14.2 Hct 42.0 MCV 87.9 MCH 29.8 MCHC 33.9 RDW 16.3 Plt Count 149 L MPV 7.3 Neut % (Auto) 71.0 H Lymph % (Auto) 16.2 [place] % (Auto) 10.2 H Eos % (Auto) 2.1 Baso % (Auto) 0.5 Neut # (Auto) 2.9 Lymph # (Auto) 0.6 L [place] # (Auto) 0.4 Eos # (Auto) 0.1 Baso # (Auto) 0.0 WBC Differential . Differential Comment Auto diff final Vancomycin Trough 10.8 H Microbiology 10/08/17 17:30 Wound - Leg Gram Stain - Final 10/08/17 17:30 Wound - Leg Wound Culture - Preliminary gram positive cocci 10/08/17 17:40 Blood - Peripheral Aerobic Blood Culture - Preliminary No growth in 1 day 10/08/17 17:40 Blood - Peripheral Anaerobic Blood Culture - Preliminary No growth in 1 day 10/08/17 17:30 Blood - Peripheral Aerobic Blood Culture - Preliminary No growth in 1 day 10/08/17 17:30 Blood - Peripheral Anaerobic Blood Culture - Preliminary No growth in 1 day - Imaging Impressions Venous Doppler Study 10/09/17 00:00 CONCLUSION: 1. Negative study with no evidence of deep venous thrombosis. 2. Prominent right groin lymph node. - Procedures none Assessment and Plan - Plan 61-year-old male with history of hypertension presents with a one-week history of bilateral lower extremity erythema/edema and weeping blisters Bilateral lower extremity cellulitis: Acute. Patient with significant erythema/ edema/induration 1 week. Afebrile, no leukocytosis, lactic acid 1.3. -Continue antibiotics with IV Zosyn and IV vancomycin with pharmacy consult -Elevate lower extremities for edema control. Compression stockings -No DVT -Pain control with percocet prn -Monitor for improvement Accelerated Hypertension: BP up to 201/92. Patient takes clonidine as needed at home, possibly experiencing rebound hypertension. -Patient previously did well on lisinopril, increase lisinopril to 20 mg twice a day, consider adding HCTZ if no improvement (avoid norvasc with lower extremity edema) -Continue clonidine prn -Monitor BP, adjust antihypertensives as needed -Needs referral to follow up with a PCP at [facility] upon discharge Large Left Neck Cyst: patient with very large fluid filled mass at left neck, per patient, present x 3 years, nonpainful. -instructed patient to follow up with general surgeon after discharge DVT Prophylaxis: lovenox sq Discharge Planning: Possible discharge in 1-2 days
[2017-10-10] MEDS: Enoxaparin Inj 40 MG/0.4 ML Syringe SQ SCH (22:20)
[2017-10-11] MEDS: Vancomycin Inj 1,250 MG in Sodium Chlor 0.9% Inj 250 ML IV.SIG SCH (02:10)
[2017-10-11] MEDS: Piperacil/Tazo 3.375 GM Premix 50 ML IV.SIG SCH (05:31)
[2017-10-11] MEDS ORDERED: hydroCHLOROthiazide 25 MG Tablet PO SCH (09:00)
[2017-10-11] MEDS: Lisinopril 20 MG Tablet PO SCH (09:41)
[2017-10-11] MEDS ORDERED: Pharmacy Ordered Lab Info OTHER ONE (09:45)
--- NOTE | 2017-10-11 11:35 | P.DS ---
Date of admission: 10/09/17 15:33 Primary care physician: No Primary Care Physician Brief History from admission: 61-year-old male with a past medical history significant for hypertension presents to the emergency department for the evaluation of bilateral lower extremity cellulitis. The patient reports that approximately 5-6 days ago he started having redness on his bilateral lower extremities. He reports that he then had several sores open up on his legs. He states this is making it difficult to ambulate secondary to pain. He has open areas that are draining serosanguineous fluid. He denies any fever/chills. DS: Medications - Discharge Medications Prescriptions: ciprofloxacin HCl [Cipro] 500 mg PO BID #20 tab hydrochlorothiazide 25 mg PO DAILY #30 tab lisinopril 20 mg PO BID #60 tab sulfamethoxazole-trimethoprim [Bactrim DS] 1 tab PO Q12H #20 tab DS: Summary Hospital Course: 61-year-old male with history of hypertension presents with a one-week history of bilateral lower extremity erythema/edema and weeping blisters Bilateral lower extremity cellulitis: Acute. Patient with significant erythema/ edema/induration 1 week. Afebrile, no leukocytosis, lactic acid 1.3. Much improved switch to Bactrim and Cipro discontinue Zosyn and IV vancomycin. Edema control. Pain control counselled regarding narcotics Accelerated Hypertension: BP up to 201/92. Patient takes clonidine as needed at home, possibly experiencing rebound hypertension. Improving add hydrochlorothiazide to lisinopril 20 mg twice a day. Needs referral to follow up with a PCP at [facility] upon discharge Large Left Neck Cyst: patient with very large fluid filled mass at left neck, per patient, present x 3 years, nonpainful. Instructed patient to follow up with general surgeon after discharge DVT Prophylaxis: lovenox sq - Time Spent with Patient Total time spent providing and/or coordinating discharge services: Greater than 30 minutes - Quality: VTE Deep Vein Thrombosis/Pulmonary Embolism Present on Admission: No Exam Vital signs: Vital Signs 10/10/17 12:00 10/10/17 16:00 10/10/17 20:00 Temperature 97.4 F L 97.6 F 97.6 F Pulse Rate 62 69 65 Respiratory Rate 17 17 20 Blood Pressure 180/86 H 171/79 H 170/77 H Pulse Oximetry 93 L 92 L 93 L 10/10/17 20:20 10/11/17 00:00 10/11/17 00:15 Temperature 97.9 F Pulse Rate 65 Respiratory Rate 18 18 18 Blood Pressure 172/82 H Pulse Oximetry 93 L 10/11/17 04:00 10/11/17 04:15 10/11/17 08:00 Temperature 98.0 F 97.2 F L Pulse Rate 70 72 Respiratory Rate 19 18 17 Blood Pressure 172/78 H 170/90 H Pulse Oximetry 91 L 91 L Intake & Output 10/10/17 10/11/17 10/11/17 18:59 06:59 18:59 Intake Total 2125.0 / 2125.0 1362.5 / 1362.5 Output Total 1325 / 1325 1200 / 1200 Balance 800.0 / 800.0 162.5 / 162.5 Weight 122.4 kg Intake: IV 625.0 / 625.0 362.5 / 362.5 Zosyn 3.375 GM Premix 50 ML @ 100 / 100 100 / 100 100 mls/hr IV.SIG Q6H [facility] Rx#: [id number] Vancomycin Inj 1,250 MG In NS 525.0 / 525.0 262.5 / 262.5 Inj 250 ML @ 250 mls/hr IV.SIG Q8H [facility] Rx#:[id number] Oral 1500 / 1500 1000 / 1000 Output: Urine 1325 / 1325 1200 / 1200 Other: # Voids 2 Date of Last Bowel Movement 10/09/17 # Bowel Movements 1 Narrative: GENERAL: Well-nourished, well-developed middle aged male patient in [facility]. SKIN: Warm and dry. No rash. NECK: Supple. Trachea midline. Very large fluid filled cyst throughout left neck. CARDIOVASCULAR: Regular rate and rhythm. No murmur appreciated. RESPIRATORY: No accessory muscle use. Clear to auscultation. Breath sounds equal bilaterally. GASTROINTESTINAL: Abdomen soft, non-tender, nondistended. Normoactive bowel sounds x4. MUSCULOSKELETAL: Bilateral lower extremities with improving diffuse erythema/ edema left> right, induration and tenderness. Open wounds on the right lower extremity with no purulent discharge. NEUROLOGICAL: Awake and alert. No obvious cranial nerve deficits. Motor grossly within normal limits. Moving all extremities spontaneously. Normal speech. Results Procedures completed during hospitalization: none Labs on day of discharge: Preliminary micro results at discharge 10/08/17 17:40 Aerobic Blood Culture - Preliminary Blood - Peripheral No growth in 3 days Anaerobic Blood Culture - Preliminary No growth in 3 days 10/08/17 17:30 Aerobic Blood Culture - Preliminary Blood - Peripheral No growth in 3 days Anaerobic Blood Culture - Preliminary No growth in 3 days - Impressions ITS Impressions Chest X-Ray 10/08/17 17:36 CONCLUSION: No evidence of acute cardiopulmonary disease. Venous Doppler Study 10/09/17 00:00 CONCLUSION: 1. Negative study with no evidence of deep venous thrombosis. 2. Prominent right groin lymph node. Discharge Plan - Discharge Disposition Patient Disposition: Discharge Home - Discharge Condition Condition: Stable - Discharge Order Discharge Orders: Discharge Order (Routine); Ordered 10/11/17 Ordered By: Gregorio Plata - Physicians Team Primary Care Provider: Primary Care Adelaida De Attending Provider: Gregorio Plata
== END 2017-10-11 11:30 | disposition home or self-care (01) ==
LOC: NEDA 11:20 → NEPD 11:20 → NEDA 22:06 → NEPGCP 22:09 → N07 10-10 08:17
PROVIDERS: ADMIT Internal Medicine; ATTEND Internal Medicine